=== PATIENT | female | born 1965 | race Caucasian/White ===

== ENCOUNTER → 2021-01-21 | Outpatient (CLI) | payer BC ==
--- NOTE | 2021-01-21 17:15 | RAD ---
EXAM: Bilateral knees, 3 views. HISTORY: Pain. COMPARISON: None. FINDINGS: 3 views of both knees are obtained. There is mild tricompartmental spurring. There is no fr acture, dislocation or subluxation. There is bilateral trace joint fluid without significant joint ef fusions. IMPRESSION: Mild tricompartmental osteoarthritis of both knees with trace joint fluid. No acute osseo us finding. Electronically signed by: Rahel Alves MD (01/21/2021 5:13 PM) [id number]
== END ==
LOC: DXRAD 16:49
PROVIDERS: ATTEND Orthopaedic Surgery
DX: M17.0 Bilateral primary osteoarthritis of knee (principal); M25.462 Effusion, left knee; M25.461 Effusion, right knee
CPT/HCPCS: 73560; 73565

== ENCOUNTER → 2021-04-16 | Outpatient (CLI) | payer BC ==
--- NOTE | 2021-04-16 15:33 | RAD ---
EXAM: ULTRASOUND ABDOMEN LIMITED CLINICAL HISTORY: Reason: RUQ ABD PAIN / Spl. Instructions: / History: COMPARISON: None available. TECHNIQUE: Limited ultrasound examination of the right upper quadrant of the abdomen was performed. FINDINGS: The pancreas is mostly obscured by overlying bowel gas.. Liver: 11.9 cm in length. Increased hepatic echogenicity relative to the right kidney consistent wi th hepatic steatosis.. There are no focal liver lesions. Flow seen within the portal veins. Biliary: No cholelithiasis. No wall thickening or pericholecystic fluid. There is no pain with dire ct transducer pressure over the gallbladder. Common bile duct measures 0.5 cm. Right Kidney: 9 cm in bipolar length. Normal renal cortical echotexture and thickness. No focal renal lesion, shadowing renal calculus or hydronephrosis. Visualized portions of the abdominal aorta and inferior vena cava are unremarkable. There is no free fluid in the subhepatic space. IMPRESSION: 1. The right kidney appears small, the small size may be related to sonographic window and associate d artifact. 2. Borderline increased echogenicity of the liver, likely fatty liver. Electronically signed by: Zak Crawford MD (04/16/2021 3:31 PM) [id number]
== END ==
LOC: US 07:47
PROVIDERS: ATTEND Family Medicine
DX: R10.11 Right upper quadrant pain (principal)
CPT/HCPCS: 76705

== ENCOUNTER → 2021-06-05 | Outpatient (CLI) | payer BC ==
[~2021-06-05] MED LIST: ATOR20TA58 PO; LEVO100T PO; MONT10TA80 PO; MULT-445 PO; OMEP40CA7 PO; fish oil PO
== END ==
LOC: LAB 13:25
PROVIDERS: ATTEND Internal Medicine Gastroenterology
DX: Z01.812 Encounter for preprocedural laboratory examination (principal); Z20.822 Contact with and (suspected) exposure to COVID-19; R10.13 Epigastric pain
CPT/HCPCS: U0003

== ENCOUNTER → 2021-06-09 | Day surgery (SDC) | payer BC ==
[~2021-06-09] MED LIST changes: +IPRATRPIUM/ALBUTEROL 0.5/2.5MG 3 ML NEBU. NEB PRN; +IV RINGERS SOLUTION,LACTATED 1,000 ML IV SCH; +LIDOCAINE 2% PF 5 ML VIAL. ONE; +MIDAZOLAM HCL PF 2 MG/2 ML VIAL. IV ONE; +ONDANSETRON PF 4 MG/2 ML VIAL. IV PRN; +PROPOFOL 10,000 MCG/ML (20ML) VIAL IV ONE
[2021-06-09 12:46] VITALS: BP 137/91
== END | disposition home or self-care (01) ==
LOC: SURG 11:12
PROVIDERS: ATTEND Internal Medicine Gastroenterology
DX: R10.10 Upper abdominal pain, unspecified (principal); K22.2 Esophageal obstruction; K44.9 Diaphragmatic hernia without obstruction or gangrene; K31.89 Other diseases of stomach and duodenum; F41.9 Anxiety disorder, unspecified; Z79.899 Other long term (current) drug therapy; Z90.710 Acquired absence of both cervix and uterus; Z98.890 Other specified postprocedural states
CPT/HCPCS: 43239; J2001; J2704; J7120